=== PATIENT | female | born 1995 | race Caucasian/White ===

== ENCOUNTER 2018-10-21 14:28 | Emergency (ER) | payer OTHER, SELFPAY ==
--- OUTSIDE RECORDS SUMMARY | 2018-10-21 14:31 | XMS REPORT ---
:1995 [facility] Address [address] [place] [address] Dr. Hawkins [address] [place] [id number] Care Team Providers Name Role Phone Unavailable Unavailable Unavailable Problems This patient has no known problems. Allergies, Adverse Reactions, Alerts This patient has no known allergies or adverse reactions. Medications This patient has no known medications.
--- NOTE | 2018-10-21 15:20 | ER ---
Nurse's Notes [facility] Name: Acacia Ness Age: 23 yrs Sex: Female : 1995 Arrival Date: 10/21/2018 Time: 14:31 Bed 17 Private MD: Diagnosis: Periapical abscess without sinus;Dental caries Presentation: 10/21 14:53 Presenting complaint: Patient states: "I've been having the worst toothache for the aj1 past week and a half." Reports pain to left jaw to that radiates to her left ear. Transition of care: patient was not received from another setting of care. Onset of symptoms was October 2018. Risk Assessment: Do you want to hurt yourself or someone else? Patient reports no desire to harm self or others. Initial Sepsis Screen: Does the patient meet any 2 criteria? No. Patient's initial sepsis screen is negative. Does the patient have a suspected source of infection? No. Patient's initial sepsis screen is negative. Care prior to arrival: None. 14:53 Method Of Arrival: Ambulatory [facility] 14:53 Acuity: SONA 4 [facility] Triage Assessment: 14:54 General: Appears in no apparent distress. uncomfortable, Behavior is calm, cooperative, aj1 appropriate for age. Pain: Pain currently is 6 out of 10 on a pain scale. EENT: Reports toothache. Neuro: Level of Consciousness is awake, alert, obeys commands. Cardiovascular: Patient's skin is warm and dry. Respiratory: Airway is patent Respiratory effort is even, unlabored, Respiratory pattern is regular, symmetrical. 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 - Social history:: Smoking status: Patient uses tobacco products, smokes one-half pack cigarettes per day. - Ebola Screening: : Patient denies travel to an Ebola-affected area in the 21 days before illness onset. Screenin:15 Abuse screen: Denies threats or abuse. Nutritional screening: No deficits noted. em Tuberculosis screening: No symptoms or risk factors identified. Fall Risk None identified. Assessment: 15:15 General: Appears in no apparent distress. uncomfortable, Behavior is calm, cooperative, em Denies fever. Pain: Complains of pain in lower left second bicuspid (#20). Neuro: Level of Consciousness is awake, alert, obeys commands, Oriented to person, place, time, situation. Cardiovascular: Capillary refill < 3 seconds Patient's skin is warm and dry. Respiratory: Airway is patent Respiratory effort is even, unlabored, Respiratory pattern is regular, symmetrical. EENT: Oral mucosa is moist. Poor dentition noted. Dental caries noted in lower left second bicuspid (#20) Throat is clear is pink Reports pain in left ear. Derm: Skin is intact, is healthy with good turgor, Skin is pink, warm \\T\\ dry. Musculoskeletal: Capillary refill < 3 seconds, Range of motion: intact in all extremities. 15:30 Reassessment: I agree with the assessment made by Osmar ARIZA. Vital Signs: 14:54 BP 123 / 77; Pulse 71; Resp 18; Temp 97.8; Pulse Ox 99% on R/A; Weight 68.49 kg (R); aj1 Height 5 ft. 3 in. (160.02 cm) (R); Pain 6/10; 14:54 Body Mass Index 26.75 (68.49 kg, 160.02 cm) aj1 ED Course: 14:31 Patient arrived in ED. mr 14:54 Triage completed. aj1 14:54 Arm band placed on Patient placed in an exam room. aj1 14:59 Nora Domingo FNP-C is [facility]. kb 14:59 Chandra Wong MD is Attending Physician. kb 15:10 Osmar Andrew LVN is Primary Nurse. em 15:15 Patient has correct armband on for positive identification. Bed in low position. Call em light in reach. Adult w/ patient. 15:32 No provider procedures requiring assistance completed. Patient did not have IV access em during this emergency room visit. Administered Medications: 15:46 Drug: traMADol 50 mg Route: PO; em 16:01 Follow up: Response: Medication administered at discharge. em 15:46 Drug: Clindamycin 300 mg Route: PO; em 16:01 Follow up: Response: Medication administered at discharge. em Outcome: 15:19 Discharge ordered by . kb 16:00 Discharged to home ambulatory, with family. em 16:00 Condition: good 16:00 Discharge instructions given to patient, Instructed on discharge instructions, follow up and referral plans. medication usage, Demonstrated understanding of instructions, follow-up care, medications, Prescriptions given X 2. 16:03 Patient left the ED. em Signatures: Nora Domingo, CENTRAL STERILIZATION TECHNICIAN-C ARABELLA-Flaac Colin RN RN aj1 Kade Stoll RN RN Acacia Melendez mr Osmar Andrew, BEE FARMER BEE FARMER em
--- NOTE | 2018-10-21 15:20 | EDPHYS ---
Physician Documentation [facility] Name: Acacia Ness Age: 23 yrs Sex: Female : 1995 Arrival Date: 10/21/2018 Time: 14:31 Bed 17 Private MD: ED Physician Chandra Wong HPI: 10/21 15:18 This 23 yrs old Female presents to ER via Ambulatory with complaints of Mouth kb Problem, Ear Pain. 15:18 The patient presents with pain, redness, swelling. The problem is located in the lower kb left second bicuspid (#20). Onset: The symptoms/episode began/occurred 1.5 week(s) ago. Duration: The symptoms are continuous. Modifying factors: The symptoms are alleviated by nothing, the symptoms are aggravated by nothing. Associated signs and symptoms: Pertinent positives: pain, redness in area, swelling. Severity of symptoms: At their worst the symptoms were moderate, in the emergency department the symptoms are unchanged. The patient has not experienced similar symptoms in the past. The patient has not recently seen a physician. 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 - Social history:: Smoking status: Patient uses tobacco products, smokes one-half pack cigarettes per day. - Ebola Screening: : Patient denies travel to an Ebola-affected area in the 21 days before illness onset. ROS: 15:16 Constitutional: Negative for fever, chills, and weight loss, Cardiovascular: Negative kb for chest pain, palpitations, and edema, Respiratory: Negative for shortness of breath, cough, wheezing, and pleuritic chest pain, Abdomen/GI: Negative for abdominal pain, nausea, vomiting, diarrhea, and constipation, : Negative for injury, bleeding, discharge, and swelling, MS/Extremity: Negative for injury and deformity, Skin: Negative for injury, rash, and discoloration, Neuro: Negative for headache, weakness, numbness, tingling, and seizure. 15:16 ENT: Positive for dental pain. Exam: 15:16 Constitutional: This is a well developed, well nourished patient who is awake, alert, kb and in no acute distress. Head/Face: Normocephalic, atraumatic. Neck: Trachea midline, no thyromegaly or masses palpated, and no cervical lymphadenopathy. Supple, full range of motion without nuchal rigidity, or vertebral point tenderness. No Meningismus. Chest/axilla: Normal chest wall appearance and motion. Nontender with no deformity. No lesions are appreciated. Cardiovascular: Regular rate and rhythm with a normal S1 and S2. No gallops, murmurs, or rubs. Normal PMI, no JVD. No pulse deficits. Respiratory: Lungs have equal breath sounds bilaterally, clear to auscultation and percussion. No rales, rhonchi or wheezes noted. No increased work of breathing, no retractions or nasal flaring. Abdomen/GI: Soft, non-tender, with normal bowel sounds. No distension or tympany. No guarding or rebound. No evidence of tenderness throughout. Skin: Warm, dry with normal turgor. Normal color with no rashes, no lesions, and no evidence of cellulitis. MS/ Extremity: Pulses equal, no cyanosis. Neurovascular intact. Full, normal range of motion. Neuro: Awake and alert, GCS 15, oriented to person, place, time, and situation. Cranial nerves II-XII grossly intact. Motor strength 5/5 in all extremities. Sensory grossly intact. Cerebellar exam normal. Normal gait. 15:16 ENT: Dental exam: dental caries, that is moderate, scattered, gum swelling, that is mild, specifically in the lower left second bicuspid (#20), pain, that is severe, specifically in the lower left second bicuspid (#20). Vital Signs: 14:54 BP 123 / 77; Pulse 71; Resp 18; Temp 97.8; Pulse Ox 99% on R/A; Weight 68.49 kg (R); aj1 Height 5 ft. 3 in. (160.02 cm) (R); Pain 6/10; 14:54 Body Mass Index 26.75 (68.49 kg, 160.02 cm) aj1 MDM: 14:59 Patient medically screened. kb 15:16 Data reviewed: vital signs, nurses notes. Data interpreted: Pulse oximetry: on room air kb is 99 %. Interpretation: normal. Counseling: I had a detailed discussion with the patient and/or guardian regarding: the historical points, exam findings, and any diagnostic results supporting the discharge/admit diagnosis, the need for outpatient follow up, a dentist, to return to the emergency department if symptoms worsen or persist or if there are any questions or concerns that arise at home. Administered Medications: 15:46 Drug: traMADol 50 mg Route: PO; em 16:01 Follow up: Response: Medication administered at discharge. em 15:46 Drug: Clindamycin 300 mg Route: PO; em 16:01 Follow up: Response: Medication administered at discharge. em Disposition: 18:12 Co-signature as Attending Physician, Chandra Wong MD. Disposition: 10/21/18 15:19 Discharged to Home. Impression: Periapical abscess without sinus, Dental caries. - Condition is Stable. - Discharge Instructions: Dental Pain, [id number], Dental Abscess, [id number]. - Prescriptions for Clindamycin HCl 300 mg Oral Capsule - take 1 capsule by ORAL route every 6 hours for 10 days; 40 capsule. Tramadol 50 mg Oral Tablet - take 1 tablet by ORAL route every 8 hours as needed; 12 tablet. - Medication Reconciliation Form, Thank You Letter, Antibiotic Education, Prescription Opioid Use form. - Follow up: Emergency Department; When: As needed; Reason: Worsening of condition. Follow up: Private Physician; When: 2 - 3 days; Reason: Recheck today's complaints, Continuance of care, Re-evaluation by your physician. Signatures: Nora Domingo FNP-C FNP-Flaca Colin RN RN aj1 Osmar Andrew, CARRIER LOADER CARRIER LOADER Chandra Wong MD MD Corrections: (The following items were deleted from the chart) 16:03 15:19 10/21/2018 15:19 Discharged to Home. Impression: Periapical abscess without em sinus; Dental caries. Condition is Stable. Forms are Medication Reconciliation Form, Thank You Letter, Antibiotic Education, Prescription Opioid Use. Follow up: Emergency Department; When: As needed; Reason: Worsening of condition. Follow up: Private Physician; When: 2 - 3 days; Reason: Recheck today's complaints, Continuance of care, Re-evaluation by your physician. kb
[2018-10-21] MEDS ORDERED: CLINDAMYCIN HCL 150 MG CAP ONE (16:00)
[2018-10-21] MEDS ORDERED: TRAMADOL HCL 50 MG TAB ONE (16:01)
== END 2018-10-21 16:03 | disposition home or self-care (01) ==
LOC: ER 14:28
DX: K04.7 Periapical abscess without sinus (principal); K02.9 Dental caries, unspecified; F17.210 Nicotine dependence, cigarettes, uncomplicated
CPT/HCPCS: 99283